=== PATIENT | male | born 1970 | race Caucasian/White ===

== ENCOUNTER 2024-05-17 06:35 | Day surgery (SDC) | payer OTHER, SELFPAY ==
[2024-04-11 06:19] VITALS: BMI 32.7
[2024-05-02 08:42] VITALS: BMI 32.1
--- NOTE | 2024-05-17 06:55 | WPDANESEPPF ---
Anes - Initial Pre Proc Eval Procedure: Operation Date: 05/17/24 08:30 Proposed Procedures p Diagnostic Colonoscopy - Billy Oconnor MD Date/Time: 05/17/24 06:55 Surgeon: Billy Oconnor MD Pre Op Diagnosis: Personal HX of Colonic Polyps Patient Data Age: 53 Gender: M Height: 1.8 m Weight: 104.5 kg Allergies Allergy/AdvReac Type Severity Reaction Status Date / Time aspirin AdvReac Intermediate Swelling Verified 05/17/24 07:31 of Lip/Tongue/Throat Home Medications Medication Instructions Recorded Confirmed Type sodium,potassium,mag sulfates 17.5 See Rx Instructions PO .COMPLEX 04/10/24 05/17/24 Rx gram-3.13 gram-1.6 gram oral soln #354 mL (Suprep Bowel Prep Kit) sodium,potassium,mag sulfates 17.5 See Rx Instructions PO .COMPLEX 05/12/24 05/17/24 Rx gram-3.13 gram-1.6 gram oral soln #354 mL (Suprep Bowel Prep Kit) Patient hx anesthesia problems: none Family hx anesthesia problems: none Results Review: All pre-operative results and documents have been reviewed as part of the pre-operative evaluation. [facility] Past Medical History Medical History (Updated 05/17/24 @ 08:11 by Billy Oconnor MD) Changing skin lesion Cholelithiasis Colon polyp, hyperplastic Liver lesion Family History Family History Other Carcinoma of colon Diabetes mellitus Social History Social History Smoking status: Never smoker Alcohol intake: current Alcohol use details: 3 per month Substance use type: does not use Living arrangements: with family Spiritual care concerns: No Anes - Eval Final PreProcedure Day of Procedure 05/17/24 06:55 Patient weight: obese Heart: regular rate and rhythm Lungs: clear to auscultation Airway: Mallampati scale class II Neurological: alert and oriented Last oral intake: >/= 8 hours ASA classification: II Emergent: no Anesthetic plan: proceed Anesthesia type and monitoring: general GIVS and standard monitoring Results Review: All pre-operative results and documents have been reviewed as part of the pre-operative evaluation. Informed Consent: The patient's anesthetic plan and its attendant risks and benefits were discussed with the patient/family/POA. Questions were solicited and answers provided to the satisfaction of the patient/family/POA.
[2024-05-17 07:42] VITALS: BP 140/94; PULSE 62; RESP 20; TEMP 36.5; O2SAT 98; BMI 32.1
[2024-05-17] MEDS: LACTATED RINGERS 1,000 ML 150 ML IV CONT (07:47)
--- NOTE | 2024-05-17 08:09 | PM.HPGS ---
History of Present Illness History of Present Illness Consent: Risks, benefits, and alternatives have been discussed and questions answered. Patient agrees to proceed with procedure. Chief complaint: Personal HX of Colonic Polyps Narrative: Yuval Burrell is a 53 year old male presents for screening colonoscopy. Patient's current weight appetite and bowel movements are normal. Patient denies abdominal pain. He has had no bleeding. Family history significant that his father had colon cancer. The patient himself had colon polyps at the time of previous colonoscopy 5 years ago. The patient presents today for screening colonoscopy. Review of Systems Review of Systems: All systems reviewed & are unremarkable except as noted in HPI and below PMFSH Past Medical History Medical History (Updated 05/17/24 @ 08:11 by Billy Oconnor MD) Changing skin lesion Cholelithiasis Colon polyp, hyperplastic Liver lesion Family History Family History Other Carcinoma of colon Diabetes mellitus Social History Social History Smoking status: Never smoker Alcohol intake: current Alcohol use details: 3 per month Substance use type: does not use Living arrangements: with family Spiritual care concerns: No Meds Home Medications and Allergies Home Medications Medication Instructions Recorded Confirmed Type sodium,potassium,mag sulfates 17.5 See Rx Instructions PO .COMPLEX 04/10/24 05/17/24 Rx gram-3.13 gram-1.6 gram oral soln #354 mL (Suprep Bowel Prep Kit) sodium,potassium,mag sulfates 17.5 See Rx Instructions PO .COMPLEX 05/12/24 05/17/24 Rx gram-3.13 gram-1.6 gram oral soln #354 mL (Suprep Bowel Prep Kit) Allergies Allergy/AdvReac Type Severity Reaction Status Date / Time aspirin AdvReac Intermediate Swelling Verified 05/17/24 07:31 of Lip/Tongue/Throat Vital Signs Vital Signs - 24 hr 05/17/24 07:42 Temperature 97.7 F Pulse Rate 62 Respiratory Rate 20 Blood Pressure 140/94 H Pulse Oximetry 98 Oxygen Delivery Room Air Exam Narrative: Physical exam reveals patient to be alert. Signs stable. Exam is unremarkable. Patient is anicteric. Is are clear to auscultation and to percussion. Heart is without murmur or extra sounds. Abdomen bowel sounds are present soft nontender with no organomegaly. Digital and external rectal exam is normal. Assessment and Plan Assessment and plan (1) History of colon polyps: Code(s): Z86.0100 - Personal history of colon polyps, unspecified Status: Acute Assessment and Plan: Patient has a history of colon polyps removed from the colon in 2019. Plan for surveillance colonoscopy at 5 year intervals. (2) Family history of colon cancer in father: Code(s): Z80.0 - Family history of malignant neoplasm of digestive organs Status: Acute Assessment and Plan: Patient's father had colon cancer. Suggest continued follow-up colonoscopy at 5 year intervals.
[2024-05-17 08:36] VITALS: BP 101/84; PULSE 72; RESP 16; O2SAT 98
[2024-05-17 08:46] VITALS: BP 115/82; PULSE 65; RESP 16; O2SAT 100
[2024-05-17 08:56] VITALS: BP 126/86; PULSE 60; RESP 18; O2SAT 100
--- NOTE | 2024-05-17 12:30 | WPDANESPN ---
Anes - Prog Note Post-Op Date/Time: 05/17/24 12:30 Cardiovascular status: normal Respiratory status: normal Airway patency: baseline Mental status: baseline Post-Op hydration status: normal Vital Signs: Last Vital Signs Temp 36.5 C 05/17/24 07:42 Pulse 60 05/17/24 08:56 Resp 18 05/17/24 08:56 BP 126/86 05/17/24 08:56 Pulse Ox 100 05/17/24 08:56 O2 Del Method Room Air 05/17/24 08:56 Pain Score (VAS): 0 I/O: Intake & Output 05/16/24 05/17/24 05/17/24 23:59 07:59 15:59 Intake Total 400 Balance 400 Post-procedural complaints: none Patient Feedback: Patient satisfied with anesthetic care. Other Findings: Patient vital signs back to baseline. Patient denies nausea and vomiting. Patient's pain under control. Patient OK for discharge.
== END 2024-05-17 09:04 | disposition home or self-care (01) ==
PROVIDERS: PCP Family Medicine; Visit Provider Internal Medicine Gastroenterology
PROC: 0DJD8ZZ Inspection of Lower Intestinal Tract, Via Natural or Artificial Opening Endoscopic (ICD-10-PCS; CPT 45378; principal; 2024-05-17 08:30)
DX: Z86.0100 Personal history of colon polyps, unspecified (principal); D12.5 Benign neoplasm of sigmoid colon; K57.30 Diverticulosis of large intestine without perforation or abscess without bleeding
CPT/HCPCS: 45385

== ENCOUNTER 2024-05-17 07:24 | Outpatient (NON) | payer OTHER, SELFPAY | END 2024-05-17 07:25 | disposition home or self-care (01) | PROVIDERS: PCP Family Medicine; Visit Provider Internal Medicine Gastroenterology | DX: K63.5 Polyp of colon (principal); Z86.0100 Personal history of colon polyps, unspecified | CPT/HCPCS: 88305 ==